=== PATIENT | male | born 1965 | race Caucasian/White ===

== ENCOUNTER → 2016-06-12 | Outpatient (CLI) | payer OTHER ==
[~2016-06-12] MED LIST: ANDROGEL75 G1 TOP; ASPIRIN EC81 MG PO; AXIRON30 MG/1.5 TOP; LASIX40 MG PO; LYRICA300 MG PO; NITROSTAT0.4 MG SL; NORVASC2.5 MG PO; RANEXA ER500 MG PO
== END | disposition disaster alternative care site (69) ==
LOC: GRAD 06-07 08:00
DX: R20.0 Anesthesia of skin (principal); R53.1 Weakness; M47.816 Spondylosis without myelopathy or radiculopathy, lumbar region; M47.812 Spondylosis without myelopathy or radiculopathy, cervical region

== ENCOUNTER 2016-08-19 04:41 | Emergency (ER) | payer OTHER ==
--- NOTE | ~2016-08-19 | ER ---
PATIENT'S NAME: SAMIR VOGT [facility] AGE: 51 Y [address] ROOM: [place] [address] LOCATION: ED ADMIT DATE: 08/19/2016 ER/Outpatient Report DISCHARGE DATE: 08/19/2016 FAMILY PHYSICIAN: Thania Delvalle MD ATTENDING PHYSICIAN: Nilam Madrigal SUBJECTIVE: This patient is a 51-year-old male who presented with chest pain. The patient was seen by Dr. Mdarigal initially and evaluated. See Dr. Madrigal's dictation in regard to the chief complaint, history of present illness, past medical history, physical exam, laboratory, x-ray, EKG, study results. Dr. Madrigal transferred the patient's care over to me at shift change. She asked me to follow up the results of 2-hour EKG and cardiac enzyme results, final diagnosis, and treatment plan. A 2-hour EKG showed no acute changes, has right bundle-branch block. Had some inverted Ts anteriorly, possibly consistent with ischemia. Two-hour CPK was 139, 2-hour CK-MB was 1.8, 2-hour troponin I was less than 0.04, unchanged from the initial cardiac enzymes. IMPRESSION: 1. Chest pain, etiology uncertain. 2. Exogenous obesity. 3. Obstructive sleep apnea. 4. Gastroesophageal reflux. PLAN: The patient was dismissed from the emergency department home, observation, activity as tolerated. Continue present home medications and care. The patient is to contact his personal physician or front end ui developer today and get set up for a cardiac stress test this week. Follow up with personal physician as needed as scheduled. Discussed with the patient concerning my findings and recommendations, he understands. MD JOSE GARCIA/modl /[id number] d: 08/19/16 1321 t: 08/20/16 0611, OUTPATIENT REPORT
--- NOTE | ~2016-08-19 | ER ---
PATIENT'S NAME: SAMIR VOGT [facility] AGE: 51 Y [address] ROOM: [place] [address] LOCATION: [facility] ADMIT DATE: 08/19/2016 ER/Outpatient Report DISCHARGE DATE: FAMILY PHYSICIAN: Thania Delvalle MD ATTENDING PHYSICIAN: Nilam Madrigal HISTORY OF PRESENT ILLNESS: A 51-year-old male who presents today with chief complaint of chest pain. He says it comes and goes in waves. It is like sharp stabbing pain in the left center of his chest. It does not radiate anywhere. When it comes, it lasts for seconds and then goes away, but during these he is nauseous, he is short of breath, and he is diaphoretic. It is ongoing for 6 to 7 hours. Has not taken any aspirin yet. He says currently it is a 2 to 3/10, but at its max it is an 8 to 9/10. He has not had anything like this before. PAST MEDICAL HISTORY: Includes neuropathy. PAST SURGICAL HISTORY: Cholecystectomy. SOCIAL HISTORY: He smokes less than a pack per day. Denies drugs or alcohol use. MEDICATIONS: See med list. ALLERGIES: PLEASE SEE MED LIST. REVIEW OF SYSTEMS: Reviewed by me and negative with the exception of those discussed in the HPI. PHYSICAL EXAMINATION: VITAL SIGNS: The patient is 5 feet 10 inches. His weight is 154.4 kilos. Blood pressure is 182/86, heart rate of 91, respiratory rate 16, temperature is 97.8, and saturations are 94% on room air. EMERGENCY ROOM COURSE: Labs were ordered. An EKG was done, which shows right bundle-branch block with appropriately ST-T changes in the precordial anterior leads. Chest x-ray was also ordered as well, labs and the cardiac enzymes. These were signed out at change of shift to Dr. Ramos pending labs and reassessment. IMPRESSION: PATIENT'S NAME: SAMIR VOGT [facility] AGE: 51 Y [address] ROOM: [place] [address] LOCATION: [facility] ADMIT DATE: 08/19/2016 ER/Outpatient Report DISCHARGE DATE: FAMILY PHYSICIAN: Thania Delvalle MD ATTENDING PHYSICIAN: Nilam Madrigal Chest pain. MD CHRISSIE LYNN/wanda /[id number] d: 08/19/16 0722 t: 08/19/16 1810, OUTPATIENT REPORT
[2016-08-19 05:06] LABS: BASOPHIL % 0.3 %; EOSINOPHIL # 0.3 K/uL (0.0-0.5); EOSINOPHIL % 2.3 %; HEMATOCRIT 54.7 % (37.0-53.0); HEMOGLOBIN 18.2 g/dL (12.0-17.0); IMMATURE GRANULOCYTE # 0.1 K/uL (0.0-0.3); IMMATURE GRANULOCYTE % 0.6 %; LYMPHOCYTE # 2.7 K/uL (0.8-4.0); LYMPHOCYTE % 20.6 %; MCH 28.2 pg (27.0-34.0); MCHC 33.3 gm/dL (32.0-36.5); MCV 84.8 fl (83.0-98.0); MONOCYTE # 1.2 K/uL (0.0-1.0); MONOCYTE % 9.1 %; MPV 9.9 fl (9.4-12.4); NEUTROPHIL # (ANC) 8.7 K/uL (1.4-9.0); NEUTROPHIL % 67.1 %; NRBC % 0 /100WBC (0-0.00); PLATELET COUNT 238 K/uL (150-450); RBC 6.45 M/uL (4.00-6.00); RDW-CV 18.2 % (11.9-14.6)
[2016-08-19 05:15] LABS: INR - (THERAPEUTIC) 0.98 (0.92-1.07); PROTIME 10.3 SECONDS (9.8-11.4); PTT 32 SECONDS (25-32)
[2016-08-19 05:25] LABS: ALBUMIN 3.5 gm/dL (3.5-5.0); ALK PHOS 111 IU/L (33-138); ALT 52 IU/L (12-78); ANION GAP 13.7 (10.0-19.0); AST 16 IU/L (10-40); BLOOD UREA NITROGEN 15 mg/dL (6-24); CALCIUM 8.8 mg/dL (8.5-10.5); CHLORIDE 110 mMol/L (96-110); CO2 23 mMol/L (22-32); CPK 131 IU/L (35-332); ESTIMATED GFR (MDRD EQUATION) > 60; MAGNESIUM 2.2 mg/dL (1.8-2.6); POTASSIUM 3.7 mMol/L (3.7-5.1); SODIUM 143 mMol/L (135-145); TOTAL BILIRUBIN 0.2 mg/dL (0.0-1.5); TOTAL PROTEIN 7.6 g/dL (6.0-8.4)
[2016-08-19 07:18] LABS: CPK 139 IU/L (35-332)
[2016-09-05] MEDS ORDERED: LYRICA300 MG PO (08:04)
[2016-09-05] MEDS ORDERED: NITROSTAT0.4 MG SL (08:05)
[2016-09-05] MEDS ORDERED: NORVASC2.5 MG PO (08:05)
[2016-09-05] MEDS ORDERED: ASPIRIN EC81 MG PO (08:06)
[2016-09-05] MEDS ORDERED: RANEXA ER500 MG PO (08:06)
[2016-09-05] MEDS ORDERED: ANDROGEL75 G1 TOP (08:06)
[2016-09-05] MEDS ORDERED: AXIRON30 MG/1.5 TOP (08:18)
== END 2016-08-19 07:36 | disposition disaster alternative care site (69) ==
LOC: GMED 04:41
PROVIDERS: Emergency Medicine
DX: R07.9 Chest pain, unspecified (principal); G47.33 Obstructive sleep apnea (adult) (pediatric); E66.09 Other obesity due to excess calories; K21.9 Gastro-esophageal reflux disease without esophagitis; G62.9 Polyneuropathy, unspecified; F17.210 Nicotine dependence, cigarettes, uncomplicated; Z88.0 Allergy status to penicillin; Z88.2 Allergy status to sulfonamides; Z79.899 Other long term (current) drug therapy; Z90.49 Acquired absence of other specified parts of digestive tract; Z96.642 Presence of left artificial hip joint

== ENCOUNTER 2016-09-11 06:07 | Outpatient (CLI) | payer OTHER ==
[~2016-09-11] VITALS: Ht 177.8 cm; Wt 152.5 kg
--- NOTE | ~2016-09-11 | ECHO ---
Transthoracic Echocardiography Report (TTE) Demographics Patient Name SAMIR VOGT Date of Study 09/11/2016 Patient Number [id number] Visit Number [id number] Date of 1965 Room Number G6399 Gender Male Number Age 51 year(s) Referring Mook Sherwood MD [employer] Jack Grajeda RVT, Physician Maxim Alberto RDCS, MD Physician Interpreting Maxim Alberto Cemetery Warden Physician Supervising Ordering Maxim Alberto MD/MLP Physician MD Nurse Stress Baker Helper Conclusions Contractility Score Summary Normal Left Ventricular contractility was noted. Summary Normal LV/RV size and systolic function. The estimated left ventricular ejection fraction is 55-60%. Mild concentric left ventricular hypertrophy. Diastolic assessment reveals normal relaxation. Mildly dilated right ventricle with normal function. No significant valvular abnormalities. Procedure Type of Study TTE procedure:2D Echocardiogram. Procedure Date Date: 09/11/2016 Start: 07:09 AM Study Location: Inpatient Portable Technical Quality: Adequate visualization Indications:Unstable angina. Appropriate Use Criteria: 8 Patient Status: Routine Rhythm: NSR HR: 80 bpm Allergies - Penicillin. - Sulfa. - Other:(coconut, pineapple). M-Mode/2D Measurements LV Diastolic Dimension: 4.72 cm LV Systolic Dimension: 3.18 cm LV Septum Diastolic: 1.21 cm LV PW Diastolic: 1.26 cm AO Root Dimension: 2.3 cm Cardiac Output: 3.77 l/min AV Cusp Separation: 2.2 cm RV Diastolic Dimension: 3.22 cm LA volume: 45 ml LVOT: 2.2 cm RV Base: 3.23 cm LVOT VTI: 12.4 cm RV Mid: 3.48 cm LV Stroke volume: 47.11 ml TAPSE: 1.74 cm TDI-S': 9.43 cm/s Doppler Measurements AV Peak Velocity: 1.1 m/s MV Peak E-Wave: 0.93 m/s AV Peak Gradient: 4.84 mmHg MV Peak A-Wave: 0.67 m/s AV Mean Gradient: 3 mmHg MV E/A Ratio: 1.39 LVOT Peak Velocity: 0.57 m/s MV P1/2t: 52 msec TR Gradient:8.64 mmHg PV Peak Velocity: 1.15 m/s PV Peak Gradient: 5.29 mmHg E' Septal Velocity: 0.08 m/s A' Septal Velocity: 0.08 m/s E' Lateral Velocity: 0.11 m/s A' Lateral Velocity: 0.15 m/s Findings Left Ventricle Mild concentric left ventricular hypertrophy. Diastolic assessment reveals normal relaxation. Right Ventricle Mildly dilated right ventricle with normal function. Left Atrium Normal left atrial size. There is no evidence of patent foramen ovale or atrial septal defect by color Doppler. Right Atrium Normal right atrial size. IVC measures 2.58 cm with inspiratory collapse. Mitral Valve Normal mitral valve structure and function. Aortic Valve Normal aortic valve structure and function. Tricuspid Valve Normal tricuspid valve structure and function. Pulmonic Valve Normal pulmonic valve structure and function. Pericardial Effusion No evidence of pericardial effusion. Miscellaneous Visualized portions of the aortic root and ascending aorta appear normal in size. Pleural Effusion No evidence of pleural effusion. Contractility Score LV regional wall motion:(0-Non visualized 1-Normal 2-Hypokinesis 3-Akinesis 4-Dyskinesis 5-Aneurysm) Signature dtt: PRINCE GUTIERREZ dtd: 09/11/16 0709 Physician Self Edit
--- NOTE | ~2016-09-11 | CATH ---
Cardiac Diagnostic Report Demographics Patient Name SIN Abarca Gender Male Date of 1965 Age 51 year(s) Patient Number [id number] Date of Study 09/11/2016 Visit Number [id number] Room Number G6399 [place] [id number] Ht 177.8 cm Wt 147.42 kg Referring Mook Sherwood Primary Physician Physician MD Maxim Alberto MD Performing [facility] Secondary Physician Physician Dolly RITTER Diagnostic [facility] Assisting Physician Physician Dolly RITTER Interventional Physician Critical Care Nurse Specialist Physician Findings and Conclusions Diagnostic Findings and Conclusion There is no angiographic evidence of luminal obstruction noted in epicardial coronaries. Ectatic coronaries. Elevated LVEDP at 20 mmHg. Diagnostic Recommendations Lasix 40 mg every other day. Continue ranexa, helps with symptoms of SOB, ROACH . Medical management. Patient has been instructed to not lift anything more than 5 pounds for 1 week. I will plan on seeing the patient back in 1 week(s). Aggressive risk factor management. Recommend aggressive risk factor modification. Optimization of medical therapy as an outpatient. Aggressive risk factor management. Procedure Description The patient was brought to the diagnostic cardiac catheterization-EP laboratory in the fasting, non-sedated state. Informed consent was obtained in the written and verbal form after the risks and benefits were explained. The patient had no further questions and agreed to proceed. The planned puncture-incision site(s) were shaved and prepped with ChloraPrep and draped in the usual sterile manner. Conscious sedation, supplemental oxygen, and pain control medications were delivered by a registered nurse under physician guidance. Surface ECG rhythm, blood pressure measurement, and pulse oximetry were monitored throughout the procedure. Arterial access. The access site was infiltrated with lidocaine. The vessel was entered with the Seldinger technique. A sheath was advanced into the vessel and used for catheter placement. Selective left coronary angiography. A catheter was advanced into the left coronary vessel ostium under Fluoroscopic guidance. Contrast was injected by hand. Images were obtained in multiple projections. Selective right coronary angiography. A catheter was advanced into the right coronary vessel ostium under fluoroscopic guidance. Contrast was injected by hand. Images were obtained in multiple projections. Left heart catheterization. A catheter was advanced across the aortic valve to the left ventricle under fluoroscopic guidance. Resting hemodynamics were obtained. Arterial artery hemostasis was achieved. The patient was transferred to a regular nursing floor via cart accompanied by a nurse. The patient left the laboratory in stable condition. Diagnostic Cath Status: Elective Procedure Procedure Type Diagnostic procedure:Angiography:, Coronary Angios /[facility] Indications: Angina and Dyspnea with exertion. The procedure was explained in detail to the patient. Risks, complications and alternative treatments were reviewed. Written consent was obtained. Angiographic Findings Dominance: Right Cardiac Arteries and Lesion Findings LMCA: Normal (0% Stenosis). LAD: Normal (0% Stenosis). LCx: Normal (0% Stenosis). RCA: Normal (0% Stenosis). Procedure Data Procedure Date Date: 09/11/2016Start: 08:58 AMEnd: 09:21 AM Entry Locations - Retrograde Percutaneous access was performed through the Right Radial artery (Primary location). A 6 Fr sheath was inserted. Hemostasis was successfully obtained using Mechanical Compression. Closure Comments: 13 ml. Procedure Medications Order and Administration + + + + + !Time !Medication !Dosage !Route ! + + + + + !09/11/2016 08:58 AM !Versed !1 mg !I.V. ! + + + + + !09/11/2016 09:02 AM !Verapamil !2.5 mg !I.A. ! + + + + + !09/11/2016 09:05 AM !Heparin (ACC_3) !5000 units !I.V. bolus ! + + + + + Devices Used - A5 Fr. BS JR 4 Diag. Catheterwas used for:Right coronary angiography. - A5 Fr. BS JL 3.5 Diag. Catheterwas used for:Left coronary angiography. Contrast Material - Isovue 49269 ml Fluoroscopy Time: Diagnostic: 3:24 minutes. Total: 3:24 minutes. Fluoroscopy Dose: Diagnostic: 1081 mGy. Total: 1081 mGy. Estimated Blood Loss: 10 ml. Medical History Allergies - Penicillin. - Sulfa. - Other:(coconut, pineapple). Risk Factors The patient risk factors include:hypertension, last creatinine: 0.9 mg/dl, creatinine clearance: 207.03 ml/min and Current/Recent(w/in 1 year) tobacco use. Admission Data Admission Date: 09/11/2016 Admission Time: 06:07 AM Admit Source: Other Insurance Payors: Private health insurance. Admission Medications + +------+-------+ + + + + !Medication!Dosage!Times !Last !Last !Administered !Comments ! ! ! !Per Day!Delivery !Delivery ! ! ! ! ! ! !Date !Time ! ! ! + +------+-------+ + + + + !Aspirin ! ! ! ! ! ! ! !(any) ! ! ! ! ! ! ! + +------+-------+ + + + + Clinical Evaluation Leading to Procedure - The patient's CAD presentation was assessed as: Unstable angina. - The patient's anginal syndrome during the past two weeks was assessed as: Class IV according to the [place] Cardiovascular Society Classification System (CCS). - The patient has been in a state of heart failure within the past two weeks. - The patient's heart failure status was assessed as NYHA Class II. Hemodynamics Condition: Rest O2 Consumption: Estimated: 314.22Heart Rate: 76 bpm Pressures (mmHg) +-----+ + !Site !Pressure ! +-----+ + !LV !129/14 ,25 ! +-----+ + !LV !128/14 ,26 ! +-----+ + !AO !125/81 (104) ! +-----+ + !LV !128/12 ,23 ! +-----+ + !AO !128/82 (106) ! +-----+ + Valve Gradients and Areas + +---------+---------+---------+ +---------+ + !Valve !Peak !Mean !Area !Index !Flow !Source ! + +---------+---------+---------+ +---------+ + !Aortic !4 !6 ! ! ! ! ! + +---------+---------+---------+ +---------+ + !Aortic !4 !6 ! ! ! ! ! + +---------+---------+---------+ +---------+ + Shunts Oxygen Values O2 Capacity 242.08 O2 Consumption 314.22 Discharge Data Discharge Date: 09/11/2016 Hospital Status: Outpatient Signatures dtt: DOLLY GUTIERREZ dtd: 09/11/16 0858 Physician Self Edit
[~2016-09-11 06:07] MED LIST changes: -LASIX40 MG PO
[2016-09-11 08:03] LABS: BASOPHIL # 0.1 K/uL (0.0-0.2); BASOPHIL % 0.5 %; EOSINOPHIL # 0.3 K/uL (0.0-0.5); EOSINOPHIL % 2.8 %; HEMATOCRIT 54.7 % (37.0-53.0); HEMOGLOBIN 17.8 g/dL (12.0-17.0); IMMATURE GRANULOCYTE # 0.1 K/uL (0.0-0.3); IMMATURE GRANULOCYTE % 0.6 %; LYMPHOCYTE # 1.9 K/uL (0.8-4.0); LYMPHOCYTE % 18.1 %; MCH 27.9 pg (27.0-34.0); MCHC 32.5 gm/dL (32.0-36.5); MCV 85.6 fl (83.0-98.0); MONOCYTE # 1.2 K/uL (0.0-1.0); MONOCYTE % 11.2 %; MPV 10.1 fl (9.4-12.4); NEUTROPHIL # (ANC) 6.8 K/uL (1.4-9.0); NEUTROPHIL % 66.8 %; NRBC % 0 /100WBC (0-0.00); PLATELET COUNT 213 K/uL (150-450); RBC 6.39 M/uL (4.00-6.00); WBC 10.3 K/uL (4.0-11.0)
[2016-09-11 08:15] LABS: INR - (THERAPEUTIC) 0.95 (0.92-1.07); PTT 32 SECONDS (25-32)
[2016-09-11 08:21] LABS: ALBUMIN 3.3 gm/dL (3.5-5.0); ALK PHOS 97 IU/L (33-138); ALT 53 IU/L (12-78); BLOOD UREA NITROGEN 17 mg/dL (6-24); CALCIUM 8.2 mg/dL (8.5-10.5); CHLORIDE 113 mMol/L (96-110); CO2 25 mMol/L (22-32); CREATININE 0.9 mg/dL (0.6-1.3); ESTIMATED GFR (MDRD EQUATION) > 60; SODIUM 144 mMol/L (135-145); TOTAL PROTEIN 7.2 g/dL (6.0-8.4)
[2016-09-11 08:26] LABS: ANION GAP 10.2 (10.0-19.0); AST 21 IU/L (10-40); POTASSIUM 4.2 mMol/L (3.7-5.1); TOTAL BILIRUBIN 0.4 mg/dL (0.0-1.5)
[2016-09-11] MEDS ORDERED: LASIX40 MG PO (11:44)
== END 2016-09-11 13:23 | disposition disaster alternative care site (69) ==
LOC: GPOC 06:07 → GPCU 06:07 → GPOC 07:00
PROVIDERS: Internal Medicine Interventional Cardiology
DX: I20.0 Unstable angina (principal); I51.7 Cardiomegaly
CPT/HCPCS: J1644; J2001; J2250; J3010; J7030